=== PATIENT | male | born 1960 | race Caucasian/White ===

== ENCOUNTER 2023-07-21 07:55 | Day surgery (SDC) | payer BC, SELFPAY ==
[2023-07-16 11:00] VITALS: BMI 28.6
--- NOTE | 2023-07-18 08:08 | MHC.SHP ---
Pre-Procedural Eval Section A Date of Service: 07/18/23 The patient is an INPATIENT: No Changes since office visit: No Cold of Flu in the past 2 weeks, No New Medical Problems, No Changes in Medication and No Patient answered all questions The History & Physical has been completed within 30 days and I have reviewed it.: Yes Section B Chief Complaint: Age-related nuclear cataract, right eye Allergies: Allergies Allergy/AdvReac Type Severity Reaction Status Date / Time Penicillins Allergy Hives Verified 07/15/23 16:26 diltiazem AdvReac Severe nose bleeds Verified 07/15/23 16:26 Plan Diagnosis/Plan: Unchanged I have reviewed the history and physical and performed a pertinent physical examination on my patient. No changes have occurred unless specified. Time Spent With Patient Time: Total time managing care of this patient today ____ minutes.
--- NOTE | 2023-07-18 09:33 | HO.ANESPROP2 ---
Documented by User: Franny Da Silva NP 07/18/23 09:35 HPI - Anesthesia Eval Consult details Narrative: 63yo M for Right Cataract Multifocal with IOL Insertion ICD Warfarin for PAF Medically cleared No previous cataract on record [facility] Past Medical History Medical History (Updated 07/16/23 @ 11:22 by Mirna Alamo, ROGELIO) Pacemaker Hx of cancer of lung (~2016) Heart burn Asthma Cataract History of squamous cell carcinoma ICD (implantable cardioverter-defibrillator) in place PAF (paroxysmal atrial fibrillation) Aortic aneurysm (~2013) Hypertrophic cardiomyopathy Surgical History Surgical History (Updated 07/16/23 @ 11:20 by Mirna Alamo RN) S/P ventricular septal myectomy Hx of left cataract extraction S/P patent foramen ovale closure Hx of pneumonectomy (~2016) Hx of tonsillectomy History of thyroplasty History of laryngoscopy History of bronchoscopy Social History Social History (Updated 07/15/23 @ 16:54 by Mirna Alamo RN) Household Members: Spouse Housing: Apartment Are you a primary critical care cns to a significant other at home: No Do you presently have visiting nurse or other home services: No Patient Tobacco Use Status: Former Tobacco user Quit Date: 2003 Tobacco use type: Cigarette Use of substances other than those prescribed or required for medical reasons: No Have you been hit, kicked, punched, or otherwise hurt by someone within the past year? If so, by whom?: No Are you DNR?: No Advance Directives: No Advance Directives Information Provided: Yes Advance Directives on File: No Recently lost weight without trying: No Nutrition Risks: No Nutritional Risk Poor oral hygiene: No Meds Allergies Allergy/AdvReac Type Severity Reaction Status Date / Time Penicillins Allergy Hives Verified 07/15/23 16:26 diltiazem AdvReac Severe nose bleeds Verified 07/15/23 16:26 Home Medications Medication Instructions Recorded Confirmed Last Taken Type sildenafil 50 mg tablet 50 mg PO NEEDED 06/11/23 06/11/23 Unknown History warfarin 4 mg tablet 8 mg PO DAILY 06/11/23 06/11/23 07/20/23 History Tums PRN Acid Reflux 07/15/23 07/15/23 Unknown History albuterol sulfate 90 mcg/actuation 2 puff inhalation Q6H PRN 07/15/23 07/15/23 Unknown History aerosol inhaler Shortness Of Breath Or Wheezing aspirin 81 mg chewable tablet 81 mg PO DAILY 07/15/23 07/15/23 Unknown History clindamycin HCl 300 mg capsule 600 mg PO ONCE 07/15/23 07/15/23 Unknown History lisinopril 5 mg tablet 5 mg PO DAILY 07/15/23 07/15/23 Unknown History Exam Height,Weight and Vital Signs: Height 6 ft 4 in Weight 106.594 kg Assessment and Plan Assessment Anesthesia Assessment: Chart Reviewed Documented by User: Samuel Hooker MD 07/21/23 09:39 [facility] Past Medical History Medical History (Updated 07/16/23 @ 11:22 by Mirna Alamo RN) Pacemaker Hx of cancer of lung (~2016) Heart burn Asthma Cataract History of squamous cell carcinoma ICD (implantable cardioverter-defibrillator) in place PAF (paroxysmal atrial fibrillation) Aortic aneurysm (~2013) Hypertrophic cardiomyopathy Family History Family history of problems with anesthesia: No Surgical History Surgical History (Updated 07/16/23 @ 11:20 by Mirna Alamo RN) S/P ventricular septal myectomy Hx of left cataract extraction S/P patent foramen ovale closure Hx of pneumonectomy (~2016) Hx of tonsillectomy History of thyroplasty History of laryngoscopy History of bronchoscopy History of Problems with Anesthesia: No Social History Social History (Updated 07/15/23 @ 16:54 by Mirna Alamo RN) Household Members: Spouse Housing: Apartment Are you a primary critical care cns to a significant other at home: No Do you presently have visiting nurse or other home services: No Patient Tobacco Use Status: Former Tobacco user Quit Date: 2003 Tobacco use type: Cigarette Use of substances other than those prescribed or required for medical reasons: No Have you been hit, kicked, punched, or otherwise hurt by someone within the past year? If so, by whom?: No Are you DNR?: No Advance Directives: No Advance Directives Information Provided: Yes Advance Directives on File: No Recently lost weight without trying: No Nutrition Risks: No Nutritional Risk Poor oral hygiene: No Meds Allergies Allergy/AdvReac Type Severity Reaction Status Date / Time Penicillins Allergy Hives Verified 07/15/23 16:26 diltiazem AdvReac Severe nose bleeds Verified 07/15/23 16:26 Home Medications Medication Instructions Recorded Confirmed Last Taken Type sildenafil 50 mg tablet 50 mg PO NEEDED 06/11/23 06/11/23 Unknown History warfarin 4 mg tablet 8 mg PO DAILY 06/11/23 06/11/23 07/20/23 History Tums PRN Acid Reflux 07/15/23 07/15/23 Unknown History albuterol sulfate 90 mcg/actuation 2 puff inhalation Q6H PRN 07/15/23 07/15/23 Unknown History aerosol inhaler Shortness Of Breath Or Wheezing aspirin 81 mg chewable tablet 81 mg PO DAILY 07/15/23 07/15/23 Unknown History clindamycin HCl 300 mg capsule 600 mg PO ONCE 07/15/23 07/15/23 Unknown History lisinopril 5 mg tablet 5 mg PO DAILY 07/15/23 07/15/23 Unknown History Exam Airway Mallampati Class: III TM Dist: >3cm Neck ROM: Full Loose/Missing/Broken Teeth: No Heart: irreg irreg s1s2 Lungs: cta b/l Assessment and Plan Assessment Anesthesia Assessment: Anesthesia Plan Discussed Final Anesthetic Review Family History of Problems with Anesthesia: No History of Problems with Anesthesia: No NPO: Yes ASA Class: III Final Preanesthetic Review: No Changes in Pt Med Stat, Meds/Allgs Chart Reviewed, Consent Obtained/Reviewed and Anes Risks/Benef Reviewed Patient Risk: Intermediate Procedure Risk: Low Assessment/Block/Sedation in SS: Assess/Block/Sedation-SS Anesthetic Plan Anesthetic Plan: MAC: and Agree w/ Assess. and Plan Disposition: Standard PACU
[2023-07-21 08:41] VITALS: BP 112/76; PULSE 87; RESP 17; TEMP 36.2; O2SAT 97
[2023-07-21 09:16] VITALS: BMI 28.6
--- NOTE | 2023-07-21 10:21 | HO.PNOPHT ---
Ophthalmology Procedure Procedure Date of Service: 07/21/23 Ophthalmology Viscoelastic: Dai Segalt Dual Pack Pro Ophthalmology Lenses: [id number] [id number] (17) Procedure Notes: PREOPERATIVE DIAGNOSIS: Decreased visual acuity right eye secondary to cataract POSTOPERATIVE DIAGNOSIS: Same PROCEDURE: Right cataract extraction with intraocular lens insertion SURGEON: Clive Ortega M.D. ANESTHESIA: Topical/MAC ESTIMATED BLOOD LOSS: None COMPLICATIONS: None After obtaining informed consent, the patient was brought to the operating room suite and placed in the supine position. After adequate sedation per anesthesia, topical drops of Tetracaine were given to the right eye. The eye was then prepped and draped in the usual sterile fashion. The operating room microscope was then positioned over the operative eye and a lid speculum placed. A paracentesis was created. Viscoelastic was then instilled into the anterior chamber. A three plane incision was then created temporally, utilizing a 2.85 mm keratome. Capsulotomy forceps were then utilized to create a circular tear capsulotomy. Hydrodissection and hydrodelineation were carried out until adequate mobilization of the nucleus occurred. Phacoemulsification was then utilized to remove the dense central nucleus followed by removal of the cortical material utilizing the automated aspiration irrigation unit. Viscoelastic was instilled into the posterior capsular bag followed by placement of a posterior chamber intraocular lens without difficulty. The residual Viscoelastic was then removed utilizing the automated IA machine. The wound was checked and found to be watertight. The patient tolerated the procedure well and the lid speculum was removed. Intracameral injection of Vigamox 0.1 mL followed by a subtenon injection of Kenalog-40 0.2 mL were administered. The patient will be seen in the a.m.
[2023-07-21 10:51] VITALS: BP 100/71; PULSE 90; RESP 16; TEMP 36.7; O2SAT 99
== END 2023-07-21 11:04 | disposition home or self-care (01) ==
PROVIDERS: PCP Registered Nurse; Visit Provider Ophthalmology
PROC: (CPT 66985; principal; 2023-07-21 10:20)
DX: H25.11 Age-related nuclear cataract, right eye (principal); H54.7 Unspecified visual loss; Z83.511 Family history of glaucoma; H43.399 Other vitreous opacities, unspecified eye; Z96.1 Presence of intraocular lens; I10 Essential (primary) hypertension; Z95.810 Presence of automatic (implantable) cardiac defibrillator; Z98.890 Other specified postprocedural states; Z85.118 Personal history of other malignant neoplasm of bronchus and lung; Z90.2 Acquired absence of lung [part of]; Z79.82 Long term (current) use of aspirin; Z79.01 Long term (current) use of anticoagulants; Z79.899 Other long term (current) drug therapy; Z88.0 Allergy status to penicillin; Z87.891 Personal history of nicotine dependence
CPT/HCPCS: 66984; J2250; J3010; J3301; V2632